=== PATIENT | female | born 1935 | race Caucasian/White ===

== ENCOUNTER 2023-12-29 22:26 | Emergency (ER) | payer MEDICARE, SELFPAY ==
[2023-12-29 23:22] VITALS: BP 136/78; PULSE 65; RESP 16; TEMP 36.6; O2SAT 96; BMI 32.3
[2023-12-30 00:57] VITALS: BP 117/58; PULSE 83; RESP 20; O2SAT 97
[2023-12-30 03:24] VITALS: PULSE 78; RESP 10; O2SAT 98
[2023-12-30 03:25] VITALS: BP 124/66; PULSE 75; RESP 9; O2SAT 99
[2023-12-30 03:30] VITALS: BP 114/57; PULSE 71; O2SAT 99
[2023-12-30 04:00] VITALS: PULSE 76; O2SAT 99
[2023-12-30 04:01] VITALS: BP 145/66; PULSE 75; O2SAT 99
--- NOTE | 2023-12-30 04:02 | ED_ITS ---
HPI - Back Pain/Injury General Chief Complaint: Back Pain/Injury Stated Complaint: possible kidney problems Time Seen by Provider: 12/30/23 03:49 Source: patient History of Present Illness HPI Narrative: 88-year-old female with history of urinary tract infections, recent years has been taking 3 times weekly prophylactic antibiotics (possibly Macrobid) the seems to be pretty effective, now with low back pain onset tonight, the seems to be resolved. She was concerned that she was having urinary tract infection again. No injury trauma new activities. No weakness to legs. No anterior abdominal discomfort. Has known right ventral hernia, no abdominal discomfort from that area or other areas or anterior abdomen. Denies nausea or vomiting. Denies loose stools. Denies black or red stools. No fevers or chills. No recent cough or shortness of breath. Related Data Home Medications Medication Instructions Recorded Confirmed ASPIRIN (#ASPIRIN) 325 mg PO Q DAY ##0 12/14/10 CA PANTOTHENATE/FOLIC ACID/VIT 1 tab PO QDAY ##0 12/14/10 (MULTIVITAMIN) CHOLECALCIFEROL (VITAMIN D) 2,000 iu PO Q DAY ##0 12/14/10 diphenhydramine HCl 25 mg tablet 25 mg PO HS ##0 12/14/10 (Benadryl Allergy) cyanocobalamin (vitamin B-12) 1,000 mcg PO Q DAY ##0 10/16/16 1,000 mcg tablet,extended release Previous Rx's Medication Instructions Recorded atorvastatin 40 mg tablet (Lipitor) 40 mg PO HS #90 tabs 01/16/17 fluticasone propionate 50 1 spray intranasal BID ##1 01/16/17 mcg/actuation nasal spray,suspension (Flonase Allergy Relief) hydrochlorothiazide 25 mg tablet 25 mg PO QDAY #90 tabs 01/16/17 montelukast 10 mg tablet 0 PO QDAY #90 tabs 01/16/17 (Singulair) omeprazole magnesium 20 mg 0 PO QDAY #90 tabs 01/16/17 tablet,delayed release (Prilosec OTC) metformin 500 mg tablet 500 mg PO BID #180 tabs 01/25/17 (Glucophage) Allergies Allergy/AdvReac Type Severity Reaction Status Date / Time Sulfa (Sulfonamide Allergy Severe ANAPHYLAXIS Verified 12/29/23 23:22 Antibiotics) [SULFA (SULFONAMIDE ANTIBIOTICS)] doxycycline [DOXYCYCLINE] Allergy Mild NAUSEA/VOMI Unverified 10/03/17 13:05 TING codeine [CODEINE] Allergy Unknown NAUSEA Verified 12/29/23 23:22 morphine [MORPHINE] Allergy Unknown VISUAL Verified 12/29/23 23:22 HALLUCINATIONS Penicillins [PENICILLINS] Allergy Unknown ANAPHYLAXIS Verified 12/29/23 23:22 Review of Systems Review of Systems Narrative: See H&P Patient History Surgical History (Updated 10/23/17 @ 06:28 by Conversion Provider) Status post hemorrhoidectomy Status post cholecystectomy Family History (Updated 06/28/17 @ 00:00 by Conversion Provider) Mother Heart disease Social History Smoking Status: Never smoker Smoking Status: Never smoker Substance Use Type: does not use Exam Narrative Exam Narrative: GENERAL: Well-developed patient, in mild distress. HEAD: Atraumatic. Normocephalic. EYES: Pupils equal round and reactive. Extraocular motions intact. No scleral icterus. No injection or drainage. ENT: Nose without bleeding, purulent drainage. Throat without erythema, tonsillar hypertrophy or exudate. Airway patent. NECK: Trachea midline. Non tender CARDIOVASCULAR: Regular rate and rhythm without murmurs, gallops, or rubs. RESPIRATORY: Clear to auscultation. Breath sounds equal bilaterally. No wheezes, rales, or rhonchi. GASTROINTESTINAL: Abdomen soft, non-tender, nondistended. No obvious fluid wave EXTREMITIES: No edema or joint tenderness. BACK: Nontender without deformity or crepitance. No flank tenderness. NEURO: AOx3. SKIN: No rash or erythema of visible areas Initial Vital Signs Initial Vital Signs: Vital Signs Temperature 97.9 F 12/29/23 23:22 Pulse Rate 65 12/29/23 23:22 Respiratory Rate 16 12/29/23 23:22 Blood Pressure 136/78 12/29/23 23:22 Pulse Oximetry 96 12/29/23 23:22 Oxygen Delivery Method Room Air 12/29/23 23:22 Course Vital Signs Vital signs: Vital Signs - 8 hr 12/29/23 23:22 12/30/23 00:57 Temperature 97.9 F Pulse Rate 65 83 Respiratory Rate 16 20 Blood Pressure 136/78 117/58 L Pulse Oximetry 96 97 Oxygen Delivery Method Room Air Room Air MDM - Back Pain/Injury Lab Data Attestation: I reviewed the patient's lab results. Labs: Urine Dip Bedside Urine Glucose Negative Bedside Urine Bilirubin - Negative Bedside Urine Ketone - Negative Urine Specific [place] 1.010 Bedside Urine Occult Blood - Negative Bedside Urine pH 6 Bedside Urine Protein - Negative Bedside Urine Urobilinogen - Negative Bedside Urine Nitrite - Negative Bedside Urine Leukocytes - Negative Esterase MDM Narrative Medical decision making narrative: 88-year-old female with history of urinary tract infections on 3 times weekly antibiotic prophylaxis, had low back pain that seems to have resolved without specific treatment. Afebrile on triage, sirs screen negative. No tenderness on back exam, no flank area discomfort. No rash or redness to skin, no vesicles. Neuro intact. Urine dip negative. Symptoms seemed to resolve. We discussed further workup that might include laboratory testing, CT imaging, she declines this for now. Advised to follow up with her regular doctor on Sunday tomorrow. Return to this/nearest emergency department for any change worsening symptoms or any concerns prior Discharge Plan Departure Patient Disposition: Home Clinical Impression: Low back pain Instructions: DI for Low Back Pain Activity Restrictions/Additional Instructions: History of urine infections, taking 3 times weekly antibiotic prophylaxis, with low back pain, arrival by EMS, no back pain while in the emergency department, no tenderness on exam. Afebrile, unremarkable vital signs. Urine dip screen testing was negative. We discussed further workup that might include laboratory blood work, CT imaging of the abdomen and pelvis and/or spine, those tests declined for now. Consider taking Tylenol as needed for discomfort. Recheck symptoms with your regular provider tomorrow Sunday. Return to this/nearest emergency department for any change worsening symptoms or any concerns prior Prescriptions: No Action diphenhydramine HCl [Benadryl Allergy] 25 MG tablet 25 mg PO HS Qty: 0 CA PANTOTHENATE/FOLIC ACID/VIT (MULTIVITAMIN) 1 tab PO QDAY Qty: 0 ASPIRIN (#ASPIRIN) 325 mg PO Q DAY Qty: 0 CHOLECALCIFEROL (VITAMIN D) 2,000 iu PO Q DAY Qty: 0 cyanocobalamin (vitamin B-12) 1,000 MCG tablet extended release 1,000 mcg PO Q DAY Qty: 0 hydrochlorothiazide 25 MG tablet 25 mg PO QDAY Qty: 90 1RF fluticasone propionate [Flonase Allergy Relief] 9.9 ML spray,suspension 1 spray Intranasal BID Qty: 1 1RF atorvastatin [Lipitor] 40 MG tablet 40 mg PO HS Qty: 90 3RF montelukast [Singulair] 10 MG tablet 0 PO QDAY Qty: 90 1RF omeprazole magnesium [Prilosec OTC] 20 MG tablet,delayed release (DR/EC) 0 PO QDAY Qty: 90 1RF metformin [Glucophage] 500 MG tablet 500 mg PO BID Qty: 180 1RF Referrals: Asia Castaneda ARNP [Primary Care Provider] - Stand Alone Forms: Patient Portal/API
== END 2023-12-30 04:19 | disposition home or self-care (01) ==
PROVIDERS: Emergency Provider Emergency Medicine; Family Provider Nurse Practitioner; PCP Nurse Practitioner
DX: M54.50 Low back pain, unspecified (principal); Z87.440 Personal history of urinary (tract) infections
CPT/HCPCS: 81003; 99282